=== PATIENT | male | born 1980 | race Caucasian/White ===

== ENCOUNTER 2023-01-09 19:14 | Emergency (ER) | payer BC, OTHER ==
[2023-01-09] MEDS ORDERED: Dexamethasone 20 MG/5 ML VIAL ONE (20:37)
[2023-01-09] MEDS ORDERED: PHENYLEPHRINE-NS 100 MCG/ML 10 ML SYRINGE ONE (20:37)
[2023-01-09] MEDS ORDERED: Lidocaine 1% PF 5 ML VIAL ONE (20:37)
[2023-01-09] MEDS ORDERED: PROPOFOL 200 MG/20 ML VIAL ONE (20:37)
[2023-01-09] MEDS ORDERED: Ondansetron PF 4 MG/2 ML Vial ONE (20:37)
[2023-01-09] MEDS ORDERED: Succinylcholine 200 MG/10 ml SYRINGE FS ONE (20:37)
== END 2023-01-09 21:05 | disposition admitted as inpatient to this hospital (09) ==
LOC: ERS 19:14
DX: T18.108A Unspecified foreign body in esophagus causing other injury, initial encounter (principal)
CPT/HCPCS: 88305; 99284; J1100; J2405; J2704